=== PATIENT | male | born 1985 | race Two or more races ===

== ENCOUNTER 2023-01-14 17:13 | Emergency (ER) | payer OTHER ==
[~2023-01-14] VITALS: Ht 165.1 cm; Wt 63.7 kg
[2023-01-14 17:56] VITALS: TEMP 98.7
[2023-01-14] MEDS ORDERED: PIPERACILLIN/TAZO 3.375 GM/D5W 50 ML IV ONE (18:15)
[2023-01-14] MEDS ORDERED: PERTUSS(ACELL),DIPH,TET VAC/PF 0.5 ML SYRINGE IM. ONE (18:15)
[2023-01-14 18:55] LABS: COVID AG,FIA SOURCE NASOPHARYNGEAL
[2023-01-14 19:10] LABS: BASOPHILS % (AUTO) 0.3 % (0.0-2.0); EOSINOPHILS % (AUTO) 1.8 % (1.0-6.0); HEMOGLOBIN 14.3 g/dL (13.5-17.5); LYMPHOCYTES % (AUTO) 12.2 % (22.0-44.0); MEAN CORPUSCULAR HEMOGLOBIN 31.2 pg (26.0-34.0); MEAN CORPUSCULAR VOLUME 89 fL (80-100); MONOCYTES # (AUTO) 0.7 K/uL (0.1-1.0); MONOCYTES % (AUTO) 8.3 % (2.0-9.0); NEUTROPHILS # (AUTO) 6.5 K/uL (1.8-7.7); NEUTROPHILS % (AUTO) 77.4 % (40.0-70.0); PLATELET COUNT (AUTO) 250 K/uL (150-450); RED CELL DISTRIBUTION WIDTH 14.1 % (11.5-14.5)
[2023-01-14] MEDS ORDERED: MORPHINE SULFATE 4 MG/ML SYRINGE IVP ONE (19:30)
[2023-01-14 19:32] LABS: ANION GAP 12 mmol/L (8-16); CARBON DIOXIDE 27 mmol/L (22-29); CHLORIDE 101 mmol/L (98-107); CREATININE 0.93 mg/dL (0.60-1.30); GLOMERULAR FILTR. RATE CALC > 60 mL/min (>60); GLUCOSE,RANDOM 106 mg/dL (70-110); POTASSIUM 3.8 mmol/L (3.5-5.1); SODIUM SERUM 140 mmol/L (136-145)
[2023-01-15 00:03] VITALS: BP 132/92; PULSE 99; RESP 18
== END 2023-01-15 01:00 | disposition short-term general hospital (02) ==
LOC: EMS 17:15
DX: S02.642A Fracture of ramus of left mandible, initial encounter for closed fracture (principal); S02.641A Fracture of ramus of right mandible, initial encounter for closed fracture; F17.210 Nicotine dependence, cigarettes, uncomplicated; Z20.822 Contact with and (suspected) exposure to COVID-19; Y04.2XXA Assault by strike against or bumped into by another person, initial encounter; Y93.89 Activity, other specified; Y92.89 Other specified places as the place of occurrence of the external cause; Y99.8 Other external cause status
CPT/HCPCS: 99285; 70450; 96365; 96366; 96375; 87426; 80048; 85025; 36415; 70486; 72125; 90715; 90471; J2270; J2543